=== PATIENT | female | born 1935 | race Caucasian/White ===

== ENCOUNTER → 2018-02-06 14:17 | Outpatient (CLI) | payer MEDICARE, OTHER, SELFPAY ==
[2018-02-06 17:35] LABS: Protein, Urine (Random) 53.4 mg/dL (<11.9); Protein:Creat Ratio 192 mg/g CRE (0-200)
[2018-02-12 22:08] LABS: PROELU- Albumin, Urine 32.9 % (.); PROELU- Alpha-2-Globulin,Ur 19.1 % (.); PROELU- Beta Globulin, Ur 29.8 % (.); PROELU- Gamma Globulin, Ur 10.2 % (.); Total Protein, Ur 50.9 mg/dL (Not Estab.)
== END ==
PROVIDERS: Family Provider Student in an Organized Health Care Education/Training Program; PCP Student in an Organized Health Care Education/Training Program; Visit Provider Internal Medicine Nephrology
DX: R80.9 Proteinuria, unspecified (principal)
CPT/HCPCS: 82570; 84156; 84166

== ENCOUNTER → 2018-03-05 12:08 | Outpatient (CLI) | payer MEDICARE, OTHER, SELFPAY ==
[2018-03-05 12:51] LABS: Hematocrit 38.5 % (37-47); Hemoglobin 13.1 g/dl (12.0-15.0); Mean Corpuscular Hgb 30.7 pg (27.0-32.0); Mean Corpuscular Volume 90.2 fL (81-99); Mean Platelet Vol. 9.3 fl (6.2-12.0); Platelet Count 264 K/mm3 (150-450); RBC Distribution Width CV 13.2 % (11.6-14.6); RBC Distribution Width SD 43.1 fl (35.1-43.9); Red Blood Count 4.27 M/mm3 (4.2-5.4); White Blood Count 6.7 K/mm3 (4.4-11.0)
[2018-03-05 12:52] LABS: Scan Indicated on CBC? Y/N NO
[2018-03-05 13:30] LABS: Albumin, Serum 3.8 g/dL (3.2-5.0); BUN 20 mg/dL (7-18); BUN/Creat Ratio 19.8 RATIO (10-20); Calcium,Total 9.1 mg/dL (8.5-10.1); Chloride 105 mmol/L (98-107); Creatinine, Serum 1.01 mg/dL (0.55-1.02); EST Glomerular Filtration Rate 56 mL/min (>60); Est Glom Filt Rate - Afr Amer 68 mL/min (>60); Glucose 91 mg/dL (74-106); Phosphorus 2.8 mg/dL (2.5-4.9); Potassium 3.8 mmol/L (3.5-5.1); Sodium Level 142 mmol/L (136-145)
[2018-03-06 22:55] LABS: Alpha-1-Globulins 0.2 g/dL (0.0-0.4); Alpha-2-Globulins 0.7 g/dL (0.4-1.0); Gamma Globulin 0.9 g/dL (0.4-1.8); Immunoglobulin A 121 mg/dL (64-422); Immunoglobulin G 710 mg/dL (700-1600); Immunoglobulin M 213 mg/dL (26-217); PROEL- TOTAL PROTEIN 6.8 g/dL (6.0-8.5)
== END ==
PROVIDERS: Family Provider Student in an Organized Health Care Education/Training Program; PCP Student in an Organized Health Care Education/Training Program; Visit Provider Internal Medicine Nephrology
DX: N18.3 Chronic kidney disease, stage 3 (moderate) (principal); R80.9 Proteinuria, unspecified
CPT/HCPCS: 36415; 80069; 82784; 84165; 85027; 86334

== ENCOUNTER 2018-05-16 05:21 | Day surgery (SDC) | payer MEDICARE, OTHER, SELFPAY ==
--- NOTE | 2018-05-10 09:34 | EKG12_ITS ---
Test Reason : PRE OP Blood Pressure : / mmHG Vent. Rate : 065 BPM Atrial Rate : 065 BPM P-R Int : 168 ms QRS Dur : 076 ms QT Int : 396 ms P-R-T Axes : 046 016 063 degrees QTc Int : 411 ms Normal sinus rhythm Normal ECG Confirmed by HAMLET MORALES, EVELYN ([id number]), communications editor ELISSA CHOWDHURY ([id number]) on 05/13/2018 2:56:25 PM Referred By: Rashel Wright Confirmed By:EVELYN MCNULTY MD
[2018-05-10 11:10] LABS: Anion Gap 3 (5-15); BUN 15 mg/dL (7-18); BUN/Creat Ratio 15.5 RATIO (10-20); Calcium,Total 8.8 mg/dL (8.5-10.1); Chloride 106 mmol/L (98-107); Creatinine, Serum 0.97 mg/dL (0.55-1.02); EST Glomerular Filtration Rate 59 mL/min (>60); Est Glom Filt Rate - Afr Amer 71 mL/min (>60); Glucose 85 mg/dL (74-106); Potassium 4.3 mmol/L (3.5-5.1); Sodium Level 139 mmol/L (136-145)
[2018-05-16] VITALS (7 sets, daily range): BP systolic 120–175; BP diastolic 58–78; PULSE 55–80; RESP 16; TEMP 36.3–37.1; O2SAT 92–97; BMI 32.4
--- NOTE | 2018-05-16 | HERN_PTH ---
PATIENT: ATUL SHOOK LOC: [facility] [place] U#:[id number] AGE/SX: 83/F ROOM: RE05/16/[address]: Dr. Rashel Wright MD : 1935 BED: DIS: 05/16/2018 SPEC #: [id number] RECD: 05/16/18 12:16 STATUS: JULIANA JEWELL #: [id number] PHILIPP: 05/16/18 00:[address]: Rashel Wright DEPT: SURGICAL PATHOLOGY RECD BY: David Berg ENTERED: 05/16/18 12:17 SP TYPE: Hernia OTHR DR: Dr. Tomas Saunders, DO Tissues: HERNIA Procedures: Surgery Specimen Level II HEADER OPERATION: Diagnostic laparoscopy/repair of ventral hernia x2 PRE-OP DIAGNOSIS: RLQ pain, ventral hernia without obstruction or gangrene TISSUE SUBMITTED: Umbilical hernia sac MICROSCOPIC DIAGNOSIS Umbilical hernia sac: A piece of fibroadipose and fibroconnective tissue, consistent with hernia sac. SJ:real 05/17/18 MICROSCOPIC DESCRIPTION Slides are reviewed. GROSS DESCRIPTION Received in fixative is one container labeled with the patient's name and designated umbilical hernia sac. The specimen consists of a piece of yellow adipose tissue measuring 5.5 x 3.5 x 1.5 cm. Sections do not reveal any mass lesion. Academic Program Specialist sections are submitted in one cassette. / NORRIS:real 05/16/18 TC:5 CPT: 05531
[2018-05-16] MEDS: Cefazolin 2 GM in 0.9% Normal Saline 100 ML IV (07:15)
--- NOTE | 2018-05-16 07:28 | OP.PCM_ITS ---
Problem List (1) Ventral hernia without obstruction or gangrene Status: Acute (2) Incarcerated incisional hernia Status: Acute Report of Operation Date of Procedure: 05/16/18 Pre-Operative Diagnosis: ventral hernia Post-Operative Diagnosis: same plus incarcerated incisional hernia Surgery/Procedure Performed:: ventral hernia repair with mesh. Incarcerated ventral hernia repair simple Type of Anesthesia:: General Anesthesiologist: Matias Figueroa Specimen's removed: hernia sac Estimated Blood Loss (mL): < 25 cc Fluids Replaced: 900 cc LR Description of Procedure: Patient was brought into the operating room. Placed in the supine position. Under excellent general endotracheal sedation. The abdomen was sterilely prepped and draped in the usual fashion. A curvilinear incision was made at the umbilicus I dissected down dissected the hernia sac from a small defect at the umbilicus just inferior to this was another hernia defect that was probably related to her previous surgery. I was able to remove the hernia sac. Placed a varies needle into the abdomen. Inflated the abdomen to 15 torr and then placed a 10/12 trocar without difficulty. I inspected the right lower quadrant of the abdomen onto my amazement I actually saw hernia I was able to reduce this incarcerated hernia in its entirety and once it was reduced I made a small incision over the location of where it was. This probably was related to a previous trocar site although it was very difficult to see any incisions over in this area. The defect itself was smaller than a centimeter. I decided that it was not in the best interest to place mesh here but thought that repeat paring it with #1 Nurolon interrupted sutures was going to be the appropriate thing. Under direct visualization I placed 2 #1 Nurolon sutures closing the defect completely from an anterior approach. There was no injury to underlying bowel structures. Once this was completed I came back to the umbilical area I connected the 2 hernias since there was a bridge of fascia in between them by opening this up. I dissected a preperitoneal space and fashioned a large ventral X ST hernia patch into the wound. I circumferentially tacked this mesh to the surrounding good fascia with #1 Nurolon's. I injected local. I reinflated the abdomen the mesh was then a preperitoneal space and look fantastic. I removed all the trochars under direct visualization good hemost asis was noted. Skin incisions were all brought together with deep dermal stitches of 4-0 Monocryl. Steri-Strips were applied. Sterile dressings were applied. The patient tolerated the procedure well. - Admit VTE Documentation VTE Present on Admission: No VTE Mechan Device Prophylaxis: SCD's VTE Pharm Prophylaxis ordered?: No Reason prophylaxis not ordered:: Treatment Not Indicated
--- NOTE | 2018-05-16 07:29 | DCINST_ITS ---
Discharge Diet: Light diet - advance as tolerated Discharge Activity: Return to Normal Activity, May Drive - when you are no longer taking narcotic pain medications., May Shower - with the bandage in place 1-2 days after surgery. Lifting Restrictions: 20 pounds for 8 weeks. Additional Activity Instructions:: Climbing stairs is fine, walking is encouraged. Sitting in bed may be uncomfortable. Sitting up using your lateral muscles (sitting up sideways) is usually more comfortable. Do not drive, work heavy equipment of sign legal documents for 24 hours. If your hernia repair was an ingunial repair, you may have scrotal swelling, an ice pack and/or athletic support can provide more comfort. Pain medications may cause nausea, you should typically eat light foods as you take your pain medications. Pain medications may also cause constipation. If you have difficulty with this, discuss with your doctor. Call your doctor if your incision/area has: Continuous Slow Oozing, Sudden Increased Bleeding, Increased Pain/ Swelling, Increased Redness, Foul Smelling Discharge Call your doctor if you observe: Fever of 101 or Higher Suture Line Care: Avoid Pulling/Pushing, Avoid Pinching/Bending Additional Dressing/Incision Instructions:: Leave the operative bandage on for 2-3 days. When you remove the bandage, leave the steri-strips on place until your follow up appointment or they fall off. Allergies/Adverse Reactions: Allergies adhesive tape Allergy (Intermediate, Verified 05/07/18 09:56) redness/rash latex Allergy (Intermediate, Verified 05/07/18 09:55) rash hydrocodone Adverse Reaction (Verified 05/07/18 09:54) Upset Stomach Medications to take at Discharge Pravastatin [Pravachol] 20 mg PO QHS 05/15/17 hydrochlorothiazide 25 mg tablet 12.5 mg PO DAILY tab 05/07/18 Oxycodone HCl/Acetaminophen [Percocet 5/325] 1 - 2 tab PO Q4H PRN PRN 5 Days #30 tab 05/16/18 The following prescriptions were given: Oxycodone HCl/Acetaminophen [Percocet 5/325] 1 - 2 tab PO Q4H PRN PRN 5 Days #30 tab PRN Reason: Pain Primary Care Physician: Tomas Saunders DO [Primary Care Provider] - Test Results: Test results from this visit will be discussed in further detail at your follow- up appointment, if applicable. Please Follow Up With: Rashel Wright MD - [phone] When: Plan to have a follow up appointment in 7 days. Call to schedule.
[2018-05-16] MEDS: Bupivacaine Mpf 0.5% 30 ML VIAL (07:38)
[2018-05-16] MEDS: Ibuprofen 400 MG Tablet 800 MG PO (09:55)
== END 2018-05-16 12:03 | disposition home or self-care (01) ==
LOC: SDC 05:21 → AC 05:22
PROVIDERS: Family Provider Student in an Organized Health Care Education/Training Program; PCP Student in an Organized Health Care Education/Training Program; Referring Provider Surgery; Visit Provider Surgery
PROC: 0WQF4ZZ Repair Abdominal Wall, Percutaneous Endoscopic Approach (ICD-10-PCS; CPT 49561; principal; 2018-05-16 07:10)
DX: K43.9 Ventral hernia without obstruction or gangrene (principal); K43.0 Incisional hernia with obstruction, without gangrene; E78.00 Pure hypercholesterolemia, unspecified; I10 Essential (primary) hypertension
CPT/HCPCS: 00752; 49561; 49568; 36415; 80048; 88302; 93005; J7120; C1781; J2405

== ENCOUNTER → 2018-07-01 13:25 | Outpatient (CLI) | payer MEDICARE, OTHER, SELFPAY ==
--- NOTE | 2018-07-01 13:27 | CT_ITS ---
STUDY: CT ABDOMEN AND PELVIS WITH CONTRAST REASON FOR EXAM: Female, 83 years old. Abdominal pain. RADIATION DOSAGE (If Supplied By Facility): CTDIvol = ( 14.33 ) mGy, DLP = ( 1966.70 ) mGycm TECHNIQUE: Transaxial images were obtained from the dome of the diaphragm to the symphysis pubis without oral contrast. 100mL ml of Isovue 300 contrast was administered. Sagittal and coronal images were reconstructed. Individualized dose optimization techniques were used for this CT. COMPARISON: None. FINDINGS: The exam is limited by motion. Normal liver. Normal gallbladder and extrahepatic biliary system. Normal spleen. Normal pancreas. Normal bilateral adrenal glands. No acute abnormalities of the kidneys. Both kidneys have parapelvic cysts. No definite stones. No hydronephrosis. There is a moderate hiatal hernia. Cannot exclude thickening of the wall of the small intestine since it is mostly unopacified. Therefore enteritis is not excluded. Normal colon. The appendix is visualized and appears normal. There is diffuse atherosclerotic calcification of the abdominal aorta with elongation and tortuosity, but without a demonstrated aneurysm. Normal inferior vena cava. Normal retroperitoneum. Normal urinary bladder. There is absence of the uterus consistent with a prior hysterectomy. Normal abdominal wall. There are diffuse degenerative changes of the visualized lumbar spine. CT/Abdomen/Pelvis WITH Contrast IMPRESSION: Exam is limited by motion. Most of the small bowel is not opacified and cannot exclude bowel wall thickening. Moderate hiatal hernia. No other definite abnormalities. Electronically Signed: Sonu Martinez MD at 22:45 EST , Service support ,
[2018-07-01 14:15] LABS: CREATININE FINGERSTICK 1.4 mg/dL (0.55-1.02)
== END ==
PROVIDERS: Family Provider Student in an Organized Health Care Education/Training Program; PCP Student in an Organized Health Care Education/Training Program; Referring Provider Physician Assistant; Visit Provider Physician Assistant
DX: R10.9 Unspecified abdominal pain (principal)
CPT/HCPCS: 74177; Q9967

== ENCOUNTER → 2018-09-16 09:46 | Outpatient (CLI) | payer MEDICARE, OTHER, SELFPAY ==
[2018-09-16 10:44] LABS: Protein, Urine (Random) 29.6 mg/dL (<11.9); Protein:Creat Ratio 204 mg/g CRE (0-200)
[2018-09-16 10:50] LABS: Albumin, Serum 3.7 g/dL (3.2-5.0); BUN 23 mg/dL (7-18); BUN/Creat Ratio 24.8 RATIO (10-20); Calcium,Total 8.7 mg/dL (8.5-10.1); Chloride 106 mmol/L (98-107); Creatinine, Serum 0.93 mg/dL (0.55-1.02); EST Glomerular Filtration Rate 62 mL/min (>60); Est Glom Filt Rate - Afr Amer 75 mL/min (>60); Glucose 87 mg/dL (74-106); Phosphorus 3.2 mg/dL (2.5-4.9); Potassium 3.7 mmol/L (3.5-5.1); Sodium Level 140 mmol/L (136-145)
== END ==
PROVIDERS: Family Provider Student in an Organized Health Care Education/Training Program; PCP Student in an Organized Health Care Education/Training Program; Referring Provider Internal Medicine Nephrology; Visit Provider Internal Medicine Nephrology
DX: N18.3 Chronic kidney disease, stage 3 (moderate) (principal); R80.9 Proteinuria, unspecified
CPT/HCPCS: 36415; 80069; 82570; 84156

== ENCOUNTER 2019-09-05 05:22 | Day surgery (SDC) | payer MEDICARE, OTHER, SELFPAY ==
--- NOTE | 2019-08-29 11:06 | EKG12_ITS ---
Test Reason : PRE OP Blood Pressure : / mmHG Vent. Rate : 065 BPM Atrial Rate : 065 BPM P-R Int : 166 ms QRS Dur : 064 ms QT Int : 388 ms P-R-T Axes : 039 009 047 degrees QTc Int : 403 ms Normal sinus rhythm Normal ECG Confirmed by ALBINA MORALES, ARIELLE ([id number]), web editor THIAGO LORENZANA ([id number]) on 09/02/2019 8:13:41 AM Referred By: Jorge Luis Demarco Confirmed By:ARIELLE MONTEMAYOR MD
[2019-08-29 11:45] LABS: AST(SGOT) 18 U/L (15-37); Alanine Aminotransfer ALT/SGPT 19 U/L (13-56); Albumin, Serum 3.9 g/dL (3.2-5.0); Alkaline Phosphatase 111 U/L (45-117); Bilirubin, Direct 0.14 mg/dL (0.00-0.30); Globulin 3.4 g/dL (2.2-4.2); Protein, Total 7.3 g/dL (6.4-8.2)
[2019-08-29 11:47] LABS: Prothrombin Time (Protime)PT. 12.9 SECONDS (11.7-14.9)
[2019-08-29 11:48] LABS: Partial Thromboplast Time 28.5 Seconds (24.1-36.2)
[2019-09-05 05:56] VITALS: BP 93/27; PULSE 80; RESP 16; TEMP 36.7; O2SAT 96; BMI 32.5
[2019-09-05] MEDS: Lactated Ringers 1,000 ML 100 ML IV (06:07)
[2019-09-05] MEDS: Vancomycin IV 1,000 MG/200 ML BAG 200 MG IV (06:07)
--- NOTE | 2019-09-05 07:30 | RAD_ITS ---
STUDY: X-RAY - LEFT FOOT CLINICAL: Female, 84 years old. ARTHRODESIS/ARTHROPLASTY TECHNIQUE: 2 intraoperative view(s) of the foot. COMPARISON: None. FINDINGS: 2 limited intraoperative views of the foot were performed as the patient has undergone arthrodesis in the distal aspects of the second and third metatarsals. No intraoperative complications noted. RAD/Foot 2 Views IMPRESSION: Second and third metatarsal arthrodesis Electronically Signed: Bo Laureano MD at 9:28 EST , Service support ,
--- NOTE | 2019-09-05 07:30 | BON_PTH ---
PATIENT: ATUL SHOOK [place] [facility] [place][id number] AGE/SX: 84/F ROOM: RE09/05/[address]: Dr. Jorge Luis Demarco DPM : 1935 BED: DIS: 09/05/2019 SPEC #: [id number] RECD: 09/05/19 10:38 STATUS: JULIANA REAddison #: [id number] PHILIPP: 09/05/19 07:[address]: Jorge Luis Demarco DEPT: SURGICAL PATHOLOGY RECD BY: Rosemarie Garcia ENTERED: 09/05/19 11:14 SP TYPE: Bone OTHR DR: MD Dr. Tomas Adams, Tissues: A - Bone of foot, NOS B - Bone of foot, NOS Procedures: Decalcification bone/plaque Surgery Specimen Level IV HEADER OPERATION: Arthrodesis/arthroplasty third left toe, osteotomy/condylectomy PRE-OP DIAGNOSIS: Hammertoe, deformed metatarsal, skin lesion TISSUE SUBMITTED: A - Bone right second toe, B - Bone left third toe, left second and third metatarsal MICROSCOPIC DIAGNOSIS A. Bone of right second toe, biopsy: Unremarkable fragments of bone. B. Bone third toe, left second and third metatarsal, biopsies: Unremarkable fragments of bone, cartilage and fibrocollagenous tissue. See comment. AM:real 09/11/19 COMMENT Clinical correlation is suggested. MICROSCOPIC DESCRIPTION Slides are reviewed. GROSS DESCRIPTION A - Received in fixative is one container labeled with the patient's name and designated bone right second toe. The specimen consists of two pieces of young bone that in aggregate measure 1.5 x 0.5 x 0.3 cm. The entire specimen is submitted in one cassette after decalcification. B - Received in fixative is one container labeled with the patient's name and designated bone left third toe, left second and third metatarsal. The specimen consists of four variable sized pieces of bone measuring in aggregate 3 x 2 x 1 cm. The entire specimen is submitted in two cassettes after decalcification. / SJ:real 09/05/19 TC:5 CPT: 85250 x2, 41179 x2
--- NOTE | 2019-09-05 07:30 | RAD_ITS ---
STUDY: X-RAY - RIGHT FOOT CLINICAL: Female, 84 years old. ARTHRODESIS/ARTHROPLASTY TECHNIQUE: 1 intraoperative view(s) of the foot. COMPARISON: None. FINDINGS: 1 Limited intraoperative view of the right foot performed as the patient is undergoing arthrodesis in the distal aspect of the second proximal phalanx. RAD/Foot 2 Views IMPRESSION: Arthrodesis of the distal aspect of the second proximal phalanx Electronically Signed: Bo Laureano MD at 9:47 EST , Service support ,
--- NOTE | 2019-09-05 07:32 | DCINST_ITS ---
Discharge Diet: Light diet - advance as tolerated Discharge Activity: May Not Drive Weight Bearing Status: Partial weight bearing - Limit weightbearing on toes/ball of foot as much as possible. Keep extremity elevated above heart level: Right Leg - Keep feet elevated for at least 50 minutes of every hour Call your doctor if your incision/area has: Continuous Slow Oozing, Sudden Increased Bleeding, Foul Smelling Discharge Call your doctor if you observe: Fever of 101 or Higher, Shortness of breath, Chest pain, Calf discomfort, Uncontrolled pain Cleanse incision/area with: Do not get Incision Wet, Keep Dressing Clean & Dry Allergies/Adverse Reactions: Allergies adhesive tape Allergy (Intermediate, Verified 08/29/19 08:58) redness/rash latex Allergy (Intermediate, Verified 08/29/19 08:58) rash hydrocodone Adverse Reaction (Verified 08/29/19 08:58) Upset Stomach Medications to take at Discharge Pravastatin [Pravachol] 10 mg PO QHS 05/15/17 hydrochlorothiazide 25 mg tablet 12.5 mg PO DAILY tab 05/07/18 Cyanocobalamin (Vitamin B-12) [Vitamin B-12] 1,000 mcg PO DAILY 08/29/19 Hydrocodone Bitart/Apap 5-325 [[place] 5MG-325MG] 1 tab PO Q4H PRN PRN 3 Days #15 tab 09/05/19 Ondansetron HCl [Zofran] 4 mg PO Q8H PRN PRN #10 tab 09/05/19 The following prescriptions were given: Hydrocodone Bitart/Apap 5-325 [[place] 5MG-325MG] 1 tab PO Q4H PRN PRN 3 Days #15 tab PRN Reason: Pain Transmission Status: Received by [facility] #[id number] Ondansetron HCl [Zofran] 4 mg PO Q8H PRN PRN #10 tab PRN Reason: Nausea Prescription Printed Orders to be completed after discharge: 12 Lead EKG [[facility]] Time Frame: 08/29/19, Facility: [facility], Location: Cardiovascular Services Partial Thromboplast Time Time Frame: 08/29/19, Facility: [facility], Location: Laboratory Prothrombin Time w/INR Time Frame: 08/29/19, Facility: [facility], Location: Laboratory Primary Care Physician: Tomas Saunders DO [Primary Care Provider] - Test Results: Test results from this visit will be discussed in further detail at your follow- up appointment, if applicable. Please Follow Up With: Jorge Luis Demarco DPM - call Dr. Demarco at [phone] (cell) or [phone] (office) if needed When: 1 week, sooner if needed
[2019-09-05] MEDS: Bupivacaine Mpf 0.5% 30 ML VIAL (08:20)
--- NOTE | 2019-09-05 09:00 | RAD_ITS ---
STUDY: X-RAY - RIGHT FOOT CLINICAL: Female, 84 years old. POST OP ARTHRODESIS OSTEOTOMY. TECHNIQUE: 3 view(s) of the foot. COMPARISON: None. FINDINGS: Patient has undergone osteotomy involving the distal aspect of the proximal second phalanx. Normal postoperative soft tissue swelling and subcutaneous emphysema noted. The bones are mildly demineralized. There are calcaneal heel spurs. Degenerative arthrosis noted at all visualized joint spaces. There is no demonstrated fracture. RAD/Foot min 3 Views IMPRESSION: Status post arthrodesis involving the distal aspect of the proximal second phalanx. Normal postoperative findings, no complications. Polyarticular arthrosis Calcaneal spurs Electronically Signed: Bo Laureano MD at 9:50 EST , Service support ,
[2019-09-05 09:01] VITALS: BP 106/74; BP 93/27; PULSE 77; RESP 18; TEMP 36.3; O2SAT 97
--- NOTE | 2019-09-05 09:01 | OP.PCM_ITS ---
Report of Operation Date of Procedure: 09/05/19 Pre-Operative Diagnosis: Hammer toe 2nd toe right foot. Hammer toe 3rd toe left foot. Deformed 2nd metatarsal left foot. Deformed 3rd metatarsal left foot. Callus plantar left forefoot Post-Operative Diagnosis: Same Surgery/Procedure Performed:: Arthroplasty right 2nd toe. Arthroplasty left 3rd toe. Left 2nd metatarsal head condylectomy/resection. 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 Deanne Ricketts Type of Anesthesia:: Local MAC Specimen's removed: Bone from right 2nd toe sent to pathology. Bone from left 3rd toe, 2nd metatarsal head, 3rd metatarsal head sent to pathology Estimated Blood Loss (mL): 1mL Description of Procedure: Indications: This is an 84 year old female with history of significant right 2nd hammer toe, left 3rd hammer toe, deformed 2nd and 3rd metatarsal heads left foot causing painful callus plantar central forefoot on the left foot. She also has an atrophic plantar fat pad. This is chronic and symptoms have persisted for years. Symptoms are worsening despite extensive nonsurgical care. She is have difficulity with shoes, walking and being active. She has elected to undergo surgical intervention. We discussed procedures in great detail. Reviewed possible benefits vs risks, goals, expectations and estimated healing time. Patient expressed understanding and agreement. All of her questions were answered. The consent forms were reviewed with her and she freely signed them. All of her questions were answered. Operative Procedure: The patient was brought back into the operating room and was placed onto the operative table in the supine position. She was carefully secured to the operating room table with safety belt around her waist. The patient did receive 2 grams of intravenous Ancef for antibiotic prophylaxis. The patient received MAC anesthesia per the anesthesiologist. A local nerve block using 0.5% Bupivacaine plain was given to the right 2nd toe, as well as the left foot 2nd and 3rd rays after the overlying skin was cleansed with 70% Isopropyl alcohol. A total of 18mL of Bupivacaine was used. A well-padded pneumatic tourniquet was applied around her right and left ankles. The right foot and left foot were scrubbed, prepped and draped in the usual aseptic fashion. The feet were exsanguinated using an Esmarch bandage and the pneumatic tourniquet were inflated to 250mmHg. Right 2nd toe: Further attention was directed to the right foot, there was a significant 2nd digit hammer toe deformity contracture. Two semi converging elliptical skin incisions were made overlying the dorsal aspect of the proximal interphalangeal joint. Dissection was completed down to the extensor digitorum longus tendon which was transected using a 15 blade, and reflected off of the head of the proximal phalanx. The proximal interphalangeal joint capsule which were released using a 15 blade. The collateral ligaments of the proximal interphalangeal joint were released. The head of the proximal phalanx was resected and sent to pathology. The sites were flushed out with copious amounts of normal saline solution. The toe was placed in rectus position and the extensor tendon was repaired using 4-0 Vicryl. The skin was reapproximated using 4-0 Nylon. Right 2nd metatarsal phalangeal joint: There was noted to be dorsal contracture of the 2nd metatarsal phalangeal joint. A small stab incision was made overlying the dorsal lateral 2nd metatarsal phalangeal joint. Dissection was completed down to the dorsal 2nd metatarsal phalangeal joint capsule and overlying extensor tendon which were significantly contracted at this level. They were released using a 15 blade. The sites were flushed out with copious amounts of normal saline solution. The skin was reapproximated using 4-0 Nylon. Left 3rd toe: Further attention was directed to the left foot, there was a significant 3rd digit hammer toe deformity contracture. Two semi converging elliptical skin incisions were made overlying the dorsal aspect of the proximal interphalangeal joint. Dissection was completed down to the extensor digitorum longus tendon which was transected using a 15 blade, and reflected off of the head of the proximal phalanx. The proximal interphalangeal joint capsule which were released using a 15 blade. The collateral ligaments of the proximal interphalangeal joint were released. The head of the proximal phalanx was resected and sent to pathology. The sites were flushed out with copious amounts of normal saline solution. The toe was placed in rectus position and the extensor tendon was repaired using 4-0 Vicryl. The skin was reapproximated using 4-0 Nylon. Now the 2nd digit was completely rectus, in good position, with the hammer toe corrected. Left 2nd metatarsal condylectomy/head resection: Further attention was directed to the forefoot where there was significant plantar prominence plantar 2nd metatarsal head with plantar foot callus formation. There was significant atrophic plantar fat pad. A skin incision was made to the dorsal lateral aspect aspect of the 2nd metatarsal phalangeal joint. Careful dissection was completed down to the 2nd metatarsal phalangeal joint capsule which was incised and reflected off of the metatarsal head. The metatarsal head was visualized and was noted to be deformed with significant degenerative changes noted. The metatarsal head was resected using a powered saw, beveling plantarly to prevent bone prominence. It was passed from the surgical site and sent to pathology. Proper resection was confirmed with intraoperative fluoroscopy. There was no purulence, abscess, no necrosis. The remaining tissue was healthy and viable. The surgical site with copious amounts of normal saline solution. The subcutaneous tissue layer was reapproximated using 4-0 Vicryl, skin was reapproximated using 4-0 Nylon. Left 3rd metatarsal condylectomy/head resection: Further attention was directed to the forefoot where there was significant plantar prominence plantar 3rd metatarsal head with plantar foot callus formation. There was significant atrophic plantar fat pad. A skin incision was made to the dorsal lateral aspect aspect of the 3rd metatarsal phalangeal joint. Careful dissection was completed down to the 3rd metatarsal phalangeal joint capsule which was incised and reflec rajani off of the metatarsal head. The metatarsal head was visualized and was noted to be deformed with significant degenerative changes noted. The metatarsal head was resected using a powered saw, beveling plantarly to prevent bone prominence. It was passed from the surgical site and sent to pathology. Proper resection was confirmed with intraoperative fluoroscopy. There was no purulence, abscess, no necrosis. The remaining tissue was healthy and viable. The surgical site with copious amounts of normal saline solution. The subcutaneous tissue layer was reapproximated using 4-0 Vicryl, skin was reapproximated using 4-0 Nylon. The callus plantar left forefoot was debrided with a 15 blade, the underlying skin was healthy, viable and normal appearing with normal skin lines, no hyperpigmentation present. The pneumatic tourniquets were deflated at 47 minutes on the right and 54 minutes on the left. There was immediate return of warmth and perfusion to the foot and all five toes. CFT was less than 2 seconds to all toes. Temperature was normal. Additional 0.5% Bupivacaine plain was given as a local nerve block around the surgical sites. A dressing was applied which consisted of Betadine so aked adaptic, 4x4 gauze, Kerlix and hillary bandage. The patient tolerated the above procedure well and anesthesia well with no complications. The patient was transported from the operative room to the ecovery room with vital signs stable and in good condition. Post operative orders were placed, and post operative instructions were reviewed with the patient and her and daughter who was with her today (verbal and written). No weightbearing right and left forefoot, keep the dressings clean, dry and intact. Keep feet elevated for at least 50 minutes of every hour. Post operative prescriptions for [place] for pain control was dispensed. Patient to follow up in 1 week, sooner if needed. Also of note post operative xrays were obtained of the right and left foot in the recovery room, which were reviewed. These confirmed the above, no complications. Grafts/Implants Used: None - Complications None
--- NOTE | 2019-09-05 09:04 | RAD_ITS ---
STUDY: X-RAY - LEFT FOOT CLINICAL: Female, 84 years old. POST OP ARTHRODESIS OSTEOTOMY. TECHNIQUE: 3 view(s) of the foot. COMPARISON: None. FINDINGS: Patient is postop from arthrodesis involving the distal aspects of the second and third metatarsals. Normal postoperative soft tissue swelling and subcutaneous emphysema noted. Calcaneal heel spurs noted. Polyarticular arthrosis noted. No acute fracture, evidence of old healed fourth metatarsal fracture. RAD/Foot min 3 Views IMPRESSION: Status post arthrodesis involving the distal aspects of the second and third metatarsals, normal postoperative soft tissue swelling and subcutaneous emphysema noted. No plain film evidence of complication Calcaneal spurs Polyarticular arthrosis Electronically Signed: Bo Laureano MD at 9:52 EST , Service support ,
[2019-09-05 09:05] VITALS: BP 106/74; BP 93/27; PULSE 77; RESP 18; O2SAT 98
[2019-09-05 09:10] VITALS: BP 156/105; BP 93/27; PULSE 76; RESP 18; O2SAT 99
[2019-09-05 09:15] VITALS: BP 167/83; BP 93/27; PULSE 69; RESP 18; TEMP 36.4; O2SAT 98
[2019-09-05 10:38] VITALS: BP 118/76; BP 93/27; PULSE 77; RESP 18; TEMP 36.4; O2SAT 99
== END 2019-09-05 11:01 | disposition home or self-care (01) ==
LOC: SDC 05:22 → AC 05:40
PROVIDERS: Family Provider Student in an Organized Health Care Education/Training Program; PCP Student in an Organized Health Care Education/Training Program; Referring Provider Podiatrist; Visit Provider Podiatrist
PROC: (CPT 28285; principal; 2019-09-05 07:15)
DX: M20.41 Other hammer toe(s) (acquired), right foot (principal); M20.42 Other hammer toe(s) (acquired), left foot; L84 Corns and callosities; E78.00 Pure hypercholesterolemia, unspecified; I12.9 Hypertensive chronic kidney disease with stage 1 through stage 4 chronic kidney disease, or unspecified chronic kidney disease; E78.2 Mixed hyperlipidemia; N18.3 Chronic kidney disease, stage 3 (moderate); M79.671 Pain in right foot; M79.672 Pain in left foot; M77.31 Calcaneal spur, right foot; M77.32 Calcaneal spur, left foot; M19.071 Primary osteoarthritis, right ankle and foot; M19.072 Primary osteoarthritis, left ankle and foot
CPT/HCPCS: 01480; 28285 ×2; 28288 ×2; 36415; 73620; 73630; 76000; 80076; 85610; 85730; 88304; 88305; 88311; 93005; J7120; J2405

== ENCOUNTER 2021-06-21 19:45 | Emergency (ER) | payer MEDICARE, OTHER, SELFPAY ==
[2021-06-21 19:46] VITALS: BP 139/107; PULSE 67; RESP 18; TEMP 36.9; O2SAT 98; BMI 28.5
--- NOTE | 2021-06-21 20:34 | CT_ITS ---
STUDY: CT FACIAL BONES WITHOUT CONTRAST REASON FOR EXAM: Female, 86 years old. Trauma RADIATION DOSAGE (If Supplied By Facility): CTDIvol = ( 29.38 ) mGy, DLP = ( 503.38 ) mGycm TECHNIQUE: The patient was scanned in a multi detector CT scanner. Sagittal and coronal images were reconstructed. Individualized dose optimization techniques were used for this CT. COMPARISON: None. FINDINGS: Left facial and left periorbital soft tissue swelling with hematoma. Normal orbital dawson and orbital contents. Normal nasal bones and anterior nasal spine. There is a fracture noted involving the anterior wall of the left maxillary sinus Because of thickening and air-fluid level in the left maxillary sinus. CT/Sinus/Facial Bone IMPRESSION: Left facial/periorbital injury with fracture involving the anterior wall of the left maxillary sinus. Electronically Signed: Bayron Huang DO at 22:23 EST Tel [phone], Service support ,
--- NOTE | 2021-06-21 20:34 | CT_ITS ---
STUDY: CT BRAIN WITHOUT CONTRAST REASON FOR EXAM: Female, 86 years old. Fall RADIATION DOSAGE (If Supplied By Facility): CTDIvol = ( 44.99 ) mGy, DLP = ( 779.24 ) mGycm TECHNIQUE: Transaxial CT imaging of the brain was performed without administration of intravenous contrast material. Individualized dose optimization techniques were used for this CT. COMPARISON: 05/15/2017 FINDINGS: Left facial and periorbital soft tissue swelling/hematoma. Mild left parietal scalp swelling. Normal calvarium. Slightly prominent ventricles and extra-axial spaces with mild atrophy. Bilateral white matter microangiopathic ischemic changes of the cerebral hemispheres. Normal basal ganglia and thalami. Normal brainstem. Normal cerebellum. There is no intracranial hemorrhage. There are no findings of an acute ischemic infarction. Mucosal thickening and possible air-fluid level in the left maxillary sinus. CT/Brain/Head without Contrast IMPRESSION: No acute intracranial pathology of the brain. Left facial and periorbital soft tissue swelling/hematoma. Left parietal scalp swelling. Electronically Signed: Bayron Huang DO at 21:33 EST Tel [phone], Service support ,
--- NOTE | 2021-06-21 20:56 | ED.VIS.FALL ---
HPI HPI - Fall History of Present Illness Chief Complaint: Fall Occured/Mechanism Occurred: Today Mechanism/Context: Yes same level fall Usually ambulates: Without assistance Pain/Injury Location: Left periorbital area Pain Location: head and face Quality of Pain: Dull Current Severity: Mild Maximum Severity: Mild Worsened by: Nothing Relieved by: Nothing Associated Symptoms Associated Symptoms: Negative for Parasthesias, Weakness, Inability to ambulate and Loss of consciousness Narrative Narrative: Patient presents after a fall that occurred today. Patient is unsure as to why she fell. Patient states she stood up and then fell to the floor. Patient does not think she lost consciousness. Patient denies any paresthesias or weakness. Patient did hit her left periorbital area. Patient also complains of some mild pain to her right elbow. Patient describes her pain is dull. Patient states nothing makes it worse and nothing makes it better. Tetanus Immunization: <5 years PFSH PFSH Medical History Abdominal pain Hypertension Home Medications pravastatin 10 mg PO QHS 05/15/17 [History Last Taken Unknown] hydrochlorothiazide 25 mg tablet 12.5 mg PO QHS tab 05/07/18 [History Last Taken Unknown] ondansetron HCl 4 mg PO Q8H PRN PRN #10 tab 09/05/19 [Rx Last Taken Unknown] amoxicillin-pot clavulanate 875 mg PO Q12H #20 tablet 06/21/21 [Rx Last Taken Unknown] Allergy/AdvReac Type Severity Reaction Status Date / Time adhesive tape Allergy Intermediate redness/blanca Verified 08/29/19 08:58 h latex Allergy Intermediate rash Verified 08/29/19 08:58 hydrocodone AdvReac Upset Verified 08/29/19 08:58 Stomach Family History Father Asthma Hypertension Mother Arthritis Cancer liver cancer High cholesterol Surgical History History of bilateral knee replacement History of hysterectomy History of replacement of both shoulder joints Hx of hernia repair Social History Smoking Status: Never smoker alcohol intake: never substance use type: does not use ROS ROS ED Constitutional Constitutional ED: Denies chills or fever(s) Eyes Eyes: Denies blurry vision or change in vision ENT ENT ED: Denies rhinorrhea or sore throat Cardiovascular Cardiovascular: Denies chest pain or palpitations Respiratory/Chest Respiratory/Chest: Denies cough or dyspnea Gastrointestinal Gastrointestinal: Reports nausea; Denies vomiting Genitourinary Genitourinary ED: Denies dysuria or hematuria Musculoskeletal Musculoskeletal: Denies back pain or neck pain Integumentary Denies abscess or rash Neurologic Neurologic: Denies headache(s) or weakness Allergic/Immunologic Allergic/Immunologic ED: Denies mouth swelling or urticaria EXAM Physical Exam Const Vital Signs: 06/21/21 19:46 06/21/21 20:52 06/21/21 20:58 Temperature 98.4 F Temperature Source Temporal Pulse Rate 67 64 Respiratory Rate 18 Respiratory Effort Normal Respiratory Depth Normal Respiratory Pattern Normal Blood Pressure 139/107 H 197/74 H Blood Pressure Mean 117 115 Pulse Ox 98 Oxygen Delivery Method Room Air 06/21/21 21:53 06/21/21 22:00 06/21/21 22:43 Temperature Temperature Source Pulse Rate 62 Respiratory Rate 18 Respiratory Effort Respiratory Depth Respiratory Pattern Blood Pressure 192/59 H 161/81 H 176/76 H Blood Pressure Mean 103 107 109 Pulse Ox 96 Oxygen Delivery Method Room Air Positive well nourished and well developed General Appearance ED: well developed HEENT Reports moist mucous membranes HEENT Narrative: There is edema and ecchymosis in the left periorbital area. There is a superficial laceration over the lateral aspect of the left eyebrow. There is no active bleeding. There is no bony crepitance or step-off. Eyes PERRL and EOMs intact bilaterally Neck full ROM, supple and no JVD Resp normal respiratory effort and clear to auscultation bilaterally Cardio regular rate, regular rhythm and no murmurs GI normal to inspection, nondistended, normoactive bowel sounds and non-tender Palpation: soft Extremity normal to inspection Extremity Narrative: There is some mild tenderness to the right elbow. There is full range of motion. There is no deformity. There is no edema or ecchymosis. Neuro oriented x3, CN's II-XII intact bilaterally and no sensory deficits noted Sensorium / Orientation: alert Motor Exam: strength 5/5 throughout Psych mental status grossly normal Skin no rashes or lesions noted MDM MDM MDM Narrative Medical decision making narrative: CT scan of the brain was obtained. There is no acute intracranial abnormality noted. There is left periorbital soft tissue swelling and hematoma. CT scan of the facial bones was obtained. There is a left facial/periorbital fracture involving anterior wall of the left maxillary sinus. These were interpreted by the radiologist and reviewed by myself. The laceration along the left eyebrow was cleaned and irrigated with copious amounts of normal saline. It was closed with Dermabond skin adhesive. Patient tolerated the procedure well. Skin tear was cleaned and dressed with Adaptic dressings. Patient was given a dose of Augmentin here. Patient was given a prescription for Augmentin. Patient was instructed to use ice to the left eye. Patient was instructed to take Tylenol or ibuprofen as needed for pain. Patient and family understood and were agreeable with the plan. All questions were answered. Radiography Diagnostic Testing: Clinical Impression(s) from Imaging Studies Brain CT 06/21/21 20:34 IMPRESSION: No acute intracranial pathology of the brain. Left facial and periorbital soft tissue swelling/hematoma. Left parietal scalp swelling. Electronically Signed: Bayron Huang DO at 21:33 EST Tel [phone], Service support , Facial/Sinus 06/21/21 20:34 IMPRESSION: Left facial/periorbital injury with fracture involving the anterior wall of the left maxillary sinus. Electronically Signed: Bayron Huang DO at 22:23 EST Tel [phone], Service support , Discharge Plan Triage Chief Complaint: Fall ED Provider: Matias Carter Dx/Rx/DC Orders Clinical Impression: Closed fracture of maxillary sinus, Laceration of left eyebrow, Skin tear of left elbow without complication Instructions: ED Facial Fracture, ED Laceration, Face: Skin Glue Prescriptions: New amoxicillin-pot clavulanate [amoxicillin-pot clavulanate] 875 MG tablet 875 mg PO Q12H Qty: 20 RF: 0 No Action pravastatin 20 MG tablet 10 mg PO QHS RF: 0 hydrochlorothiazide 25 mg tablet 12.5 mg PO QHS RF: 0 ondansetron HCl 4 MG tablet 4 mg PO Q8H PRN PRN (Reason: Nausea) Qty: 10 RF: 0 Primary Care Provider: Tomas Saunders Referrals: Harsha Bucio MD [STAFF PHYSICIAN] - 1-2 Weeks Tomas Saunders DO [Primary Care Provider] - 5-7 Days Disposition Disposition: Home, Self Care
[2021-06-21 20:58] VITALS: BP 197/74; PULSE 64
[2021-06-21 21:53] VITALS: BP 192/59
[2021-06-21 22:00] VITALS: BP 161/81
[2021-06-21 22:43] VITALS: BP 176/76; PULSE 62; RESP 18; O2SAT 96
[2021-06-21 23:20] VITALS: BP 153/60; PULSE 60; RESP 12; O2SAT 96
== END 2021-06-21 23:20 | disposition home or self-care (01) ==
PROVIDERS: Emergency Provider Emergency Medicine; PCP Student in an Organized Health Care Education/Training Program
DX: S01.112A Laceration without foreign body of left eyelid and periocular area, initial encounter (principal); S51.012A Laceration without foreign body of left elbow, initial encounter; S02.401A Maxillary fracture, unspecified side, initial encounter for closed fracture; W18.30XA Fall on same level, unspecified, initial encounter; Y93.9 Activity, unspecified; Y92.89 Other specified places as the place of occurrence of the external cause; Y99.8 Other external cause status; I10 Essential (primary) hypertension; Z96.653 Presence of artificial knee joint, bilateral
CPT/HCPCS: 12011; 70450; 70486; 96374; 99282

== ENCOUNTER → 2022-05-12 | Outpatient (CLI) | payer MEDICARE, OTHER, SELFPAY ==
[2022-05-12 18:29] LABS: ALB/GLOB Ratio 1.1 RATIO (0.9-2.4); AST(SGOT) 20 U/L (15-37); Alanine Aminotransfer ALT/SGPT 17 U/L (13-56); Alkaline Phosphatase 86 U/L (45-117); Anion Gap 8 (5-15); BUN 18 mg/dL (7-18); Calcium,Total 9.4 mg/dL (8.5-10.1); Chloride 106 mmol/L (98-107); Cholesterol 209 mg/dL (200); Creatinine, Serum 1.06 mg/dL (0.55-1.02); EST Glomerular Filtration Rate 52 mL/min (>60); Est Glom Filt Rate - Afr Amer 63 mL/min (>60); Globulin 3.5 g/dL (2.2-4.2); Glucose 94 mg/dL (74-106); High Density Lipoprotein 58 mg/dL; Protein, Total 7.5 g/dL (6.4-8.2); Sodium Level 141 mmol/L (136-145); Triglycerides 122 mg/dL; Very Low Density Lipoprotein 24 mg/dL (5-40)
== END | disposition home or self-care (01) ==
LOC: MFPLAB 14:37
PROVIDERS: PCP Family Medicine; Referring Provider Family Medicine; Visit Provider Family Medicine
DX: E78.5 Hyperlipidemia, unspecified (principal)
CPT/HCPCS: 36415; 80053; 80061

== ENCOUNTER → 2022-11-06 | Outpatient (CLI) | payer MEDICARE, OTHER, SELFPAY ==
[2022-11-06 12:57] LABS: ALB/GLOB Ratio 1.1 RATIO (0.9-2.4); AST(SGOT) 16 U/L (15-37); Alanine Aminotransfer ALT/SGPT 14 U/L (13-56); Albumin, Serum 3.8 g/dL (3.2-5.0); Alkaline Phosphatase 99 U/L (45-117); Anion Gap 5 (5-15); BUN 18 mg/dL (7-18); BUN/Creat Ratio 18.2 RATIO (10-20); Calcium,Total 9.3 mg/dL (8.5-10.1); Chloride 104 mmol/L (98-107); Cholesterol 206 mg/dL (200); Creatinine, Serum 0.99 mg/dL (0.55-1.02); EST Glomerular Filtration Rate 57 mL/min (>60); Est Glom Filt Rate - Afr Amer 69 mL/min (>60); Globulin 3.4 g/dL (2.2-4.2); Glucose 93 mg/dL (74-106); High Density Lipoprotein 51 mg/dL; Potassium 4.1 mmol/L (3.5-5.1); Protein, Total 7.2 g/dL (6.4-8.2); Sodium Level 137 mmol/L (136-145); Triglycerides 137 mg/dL; Very Low Density Lipoprotein 27 mg/dL (5-40)
== END | disposition home or self-care (01) ==
LOC: MFPLAB 10:42
PROVIDERS: PCP Family Medicine; Visit Provider Family Medicine
DX: E78.5 Hyperlipidemia, unspecified (principal)
CPT/HCPCS: 36415; 80053; 80061

== ENCOUNTER → 2023-05-09 | Outpatient (CLI) | payer MEDICARE, OTHER, SELFPAY ==
[2023-05-09 14:12] LABS: ALB/GLOB Ratio 1.3 RATIO (0.9-2.4); AST(SGOT) 16 U/L (15-37); Alanine Aminotransfer ALT/SGPT 18 U/L (13-56); Alkaline Phosphatase 88 U/L (45-117); Anion Gap 7 (5-15); BUN 19 mg/dL (7-18); BUN/Creat Ratio 18.8 RATIO (10-20); Calcium,Total 9.4 mg/dL (8.5-10.1); Chloride 104 mmol/L (98-107); Cholesterol 190 mg/dL (200); Creatinine, Serum 1.01 mg/dL (0.55-1.02); EST Glomerular Filtration Rate 55 mL/min (>60); Est Glom Filt Rate - Afr Amer 67 mL/min (>60); Globulin 3.1 g/dL (2.2-4.2); Glucose 93 mg/dL (74-106); High Density Lipoprotein 55 mg/dL; Potassium 4.5 mmol/L (3.5-5.1); Protein, Total 7.1 g/dL (6.4-8.2); Sodium Level 137 mmol/L (136-145); Triglycerides 104 mg/dL; Very Low Density Lipoprotein 21 mg/dL (5-40)
== END | disposition home or self-care (01) ==
LOC: MFPLAB 10:35
PROVIDERS: PCP Family Medicine; Visit Provider Family Medicine
DX: I10 Essential (primary) hypertension (principal)
CPT/HCPCS: 36415; 80053; 80061

== ENCOUNTER → 2023-11-07 | Outpatient (CLI) | payer MEDICARE, OTHER, SELFPAY ==
[2023-11-07 12:44] LABS: Anion Gap 5 (5-15); BUN 19 mg/dL (7-18); BUN/Creat Ratio 17.6 RATIO (10-20); Calcium,Total 9.6 mg/dL (8.5-10.1); Chloride 104 mmol/L (98-107); Cholesterol 220 mg/dL (200); Creatinine, Serum 1.08 mg/dL (0.55-1.02); EST Glomerular Filtration Rate 51 mL/min (>60); Est Glom Filt Rate - Afr Amer 62 mL/min (>60); Glucose 101 mg/dL (74-106); High Density Lipoprotein 55 mg/dL; Potassium 4.4 mmol/L (3.5-5.1); Sodium Level 138 mmol/L (136-145); Triglycerides 124 mg/dL; Very Low Density Lipoprotein 25 mg/dL (5-40)
== END | disposition home or self-care (01) ==
LOC: MFPLAB 09:38
PROVIDERS: PCP Family Medicine; Visit Provider Family Medicine
DX: I10 Essential (primary) hypertension (principal)
CPT/HCPCS: 36415; 80048; 80061

== ENCOUNTER → 2024-05-08 | Outpatient (CLI) | payer MEDICARE, OTHER, SELFPAY ==
[2024-05-08 15:25] LABS: Anion Gap 7 (5-15); BUN 18 mg/dL (7-18); BUN/Creat Ratio 17.8 RATIO (10-20); Calcium,Total 9.6 mg/dL (8.5-10.1); Chloride 103 mmol/L (98-107); Cholesterol 206 mg/dL (200); Creatinine, Serum 1.01 mg/dL (0.55-1.02); EST Glomerular Filtration Rate 55 mL/min (>60); Est Glom Filt Rate - Afr Amer 67 mL/min (>60); Glucose 86 mg/dL (74-106); High Density Lipoprotein 61 mg/dL; Potassium 4.3 mmol/L (3.5-5.1); Sodium Level 137 mmol/L (136-145); Triglycerides 97 mg/dL; Very Low Density Lipoprotein 19 mg/dL (5-40)
== END | disposition home or self-care (01) ==
LOC: MFPLAB 11:05
PROVIDERS: PCP Family Medicine; Visit Provider Family Medicine
DX: E78.5 Hyperlipidemia, unspecified (principal); I10 Essential (primary) hypertension
CPT/HCPCS: 36415; 80048; 80061

== ENCOUNTER → 2024-10-13 | Outpatient (CLI) | payer MEDICARE, OTHER, SELFPAY ==
[2024-10-13 18:31] LABS: ALB/GLOB Ratio 1.7 RATIO (0.9-2.4); AST(SGOT) 24 U/L (<=31); Alanine Aminotransfer ALT/SGPT 9 U/L (<=34); Albumin, Serum 4.5 g/dL (3.4-4.8); Alkaline Phosphatase 96 U/L (35-104); Anion Gap 13 (5-15); BUN 15 mg/dL (4-19); BUN/Creat Ratio 14.5 RATIO (10-20); Calcium,Total 9.6 mg/dL (7.6-11.0); Carbon Dioxide 24.3 mmol/L (21.0-32.0); Chloride 102 mmol/L (98-108); Cholesterol 198 mg/dL (<=200); Creatinine, Serum 1.02 mg/dL (0.70-1.20); EST Glomerular Filtration Rate 53 (>60); Globulin 2.6 g/dL (2.2-4.2); Glucose 90 mg/dL (70-99); High Density Lipoprotein 55 mg/dL; Low Density Lipoprotein Calc. 118 mg/dL; Potassium 4.2 mmol/L (3.3-5.1); Protein, Total 7.1 g/dL (5.9-8.4); Sodium Level 139 mmol/L (133-145); Triglycerides 124 mg/dL; Very Low Density Lipoprotein 25 mg/dL (5-40); cholesterol:hdl ratio screen 3.59
== END | disposition home or self-care (01) ==
LOC: MFPLAB 15:23
PROVIDERS: PCP Family Medicine; Referring Provider Family Medicine; Visit Provider Family Medicine
DX: I10 Essential (primary) hypertension (principal)
CPT/HCPCS: 36415; 80053; 80061

== ENCOUNTER → 2025-07-03 | Outpatient (CLI) | payer MEDICARE, OTHER, SELFPAY ==
[2025-07-03 15:19] LABS: AST(SGOT) 20 U/L (<=31); Alanine Aminotransfer ALT/SGPT 8 U/L (<=34); Albumin, Serum 4.2 g/dL (3.4-4.8); Alkaline Phosphatase 92 U/L (35-104); Anion Gap 11 (5-15); BUN 17 mg/dL (4-19); BUN/Creat Ratio 16.3 RATIO (10-20); Calcium,Total 9.8 mg/dL (7.6-11.0); Carbon Dioxide 26.7 mmol/L (21.0-32.0); Chloride 103 mmol/L (98-108); Cholesterol 227 mg/dL (<=200); Globulin 2.6 g/dL (2.2-4.2); Glucose 93 mg/dL (70-99); Low Density Lipoprotein Calc. 159 mg/dL; Potassium 4.9 mmol/L (3.3-5.1); Triglycerides 113 mg/dL; Very Low Density Lipoprotein 23 mg/dL (5-40); cholesterol:hdl ratio screen 4.77
== END | disposition home or self-care (01) ==
LOC: MFPLAB 11:48
PROVIDERS: PCP Family Medicine; Visit Provider Family Medicine
DX: I10 Essential (primary) hypertension (principal)
CPT/HCPCS: 36415; 80053; 80061